=== PATIENT | female | born 2000 | race Caucasian/White ===

== ENCOUNTER 2021-12-28 03:33 | Emergency (ER) | payer OTHER ==
[~2021-12-28 03:33] MED LIST: IBUPROFEN600 MG PO; NAPROSYN500 MG PO; OMNICEF 300 MG300 MG PO; PYRIDIUM200 MG PO; ZOFRAN ODT 4 MG4 MG SL
[2021-12-28 05:05] LABS: HEMOGLOBIN 11.6 gm/dl (12.3-15.3); RED BLOOD COUNT 3.72 M/UL (4.00-5.10); WHITE BLOOD COUNT 18.6 K/UL (4.5-11.0)
[2021-12-28] MEDS ORDERED: OMNICEF 300 MG300 MG PO (06:08)
[2021-12-28] MEDS ORDERED: BACTRIM DS TAB1 EACH PO (06:08)
[2021-12-28 07:28] LABS: BUN/CREATININE RATIO 18 (0-10)
== END 2021-12-28 06:22 | disposition home or self-care (01) ==
LOC: ER1 03:33
PROVIDERS: Student in an Organized Health Care Education/Training Program
DX: L05.01 Pilonidal cyst with abscess (principal); F17.210 Nicotine dependence, cigarettes, uncomplicated; R00.0 Tachycardia, unspecified
CPT/HCPCS: 10080; 80053; 85025; 96374; 96375; 99283; J2270; J2550